=== PATIENT | female | born 1980 | race Native Hawaiian/Other Pacific Islander ===

== ENCOUNTER 2021-12-15 20:53 | Inpatient (IN) | payer OTHER ==
[2021-12-15 22:35] LABS: Bacteria,Urine 4+ /HPF (Negative); Color,Urine Colorless (Yellow); Mucus,Urine FEW /HPF; WBC,Urine < 1.0 /HPF (0.0-6.0)
[2021-12-16 04:40] LABS: Basophils # (Auto) 0.2 K/mm3 (0.0-0.1); Basophils % (Auto) 2.3 % (0.0-1.8); Eosinophils # (Auto) 0.1 K/mm3 (0.0-0.4); Eosinophils % (Auto) 0.8 % (0.0-4.3); Hematocrit 40.3 % (30.3-42.9); Hemoglobin 13.2 gm/dl (10.1-14.3); Lymphocytes % (Auto) 27.3 % (13.4-35.0); Mean Corpuscular HGB Conc 33 % (30-34); Mean Corpuscular Volume 91 fl (79-97); Monocytes # (Auto) 0.8 K/mm3 (0.0-0.8); Monocytes % (Auto) 10.6 % (0.0-7.3); Platelet Count 321 K/mm3 (140-440); Red Blood Count 4.44 M/mm3 (3.65-5.03); Red Cell Distribution Width 13.3 % (13.2-15.2)
[2021-12-16 05:00] LABS: Alanine Aminotransferase 24 units/L (7-56); Albumin 4.5 g/dL (3.9-5); Blood Urea Nitrogen 8 mg/dL (7-17); Calcium 9.1 mg/dL (8.4-10.2); Hemolysis Index 16
[2021-12-16 05:35] LABS: BUN/Creatinine Ratio 13
[2021-12-16] MEDS ORDERED: ONDANSETRON 4 MG/2 ML INJ IV ONE (07:13)
[2021-12-16] MEDS ORDERED: MORPHINE 4 MG/1 ML INJ IV ONE (07:13)
[2021-12-16] MEDS ORDERED: SODIUM CHLORIDE 0.9% 1000 ML 1,000 ML IV ONE (07:14)
--- NOTE | 2021-12-16 07:28 | Emergency Department Report ---
HPI - General Chief Complaint: Abdominal Pain PUI?: No Time Seen by Provider: 12/16/21 06:43 - HPI HPI: 41-year-old female presents for evaluation of 2 days of right flank pain and right lower quadrant pain. Patient states her symptoms initially began as right flank pain associate with nausea and intermittent diarrhea. She states is now localized to her right lower quadrant. Patient states she drank "a lot of fluids because I thought it could have been my kidneys." She complains of cloudy urine but without any other UTI symptoms. Pain is pressure-like constant and currently does not radiate. No fevers or chills. No prior history of similar symptoms in the past. No history of surgeries to her abdomen. No melena hematochezia or hematemesis. Last bowel movement was 1 day ago and she states it was watery. She has not taken any analgesics at home for her symptoms. She is not on any active antibiotics and has not recently been taking any. Pain currently 8 out of 10. ED Past Medical Hx - Past Medical History Previous Medical History?: No - Surgical History Past Surgical History?: No ED Review of Systems ROS: Stated complaint: RT ABD PAIN Other details as noted in HPI Comment: All other systems reviewed and negative Physical Exam - Physical Exam Vital Signs: Vital Signs 12/15/21 21:25 Temperature 99.0 F Pulse Rate 94 H Respiratory 17 Rate Blood Pressure 131/66 [Left] O2 Sat by Pulse 99 Oximetry General: Gen: pt is well appearing, no acute distress HEENT: Normocephalic atraumatic pupils equally round and reactive to light extraocular muscles intact sclera anicteric Neck: Full range of motion, no midline spinal tenderness palpation, no JVD, no carotid bruits, no nuchal rigidity CVS: S1-S2 regular rate and rhythm with no gallops rubs or murmurs, chest wall nontender Pulmonary: Clear to auscultation bilaterally, no wheezes rales or rhonchi Abdomen: Soft nondistended nontender no guarding or rebound tenderness, no palpable deformities or step-offs, normal active bowel sounds, no hepatosplenomegaly, no pulsatile masses : Deferred Extremities: No cyanosis no clubbing no edema, intact distal peripheral pulses, Integumentary: Skin normal, no petechia no purpura no abscess no lacerations no evidence of trauma no evidence of infection Neuro: Patient is awake alert and oriented to person place time situation, mentating well, cranial nerves II through XII intact, no focal neurodeficits, sensation grossly tact Psych: Calm cooperative, mood affect normal ED Course Vital Signs 12/15/21 21:25 Temperature 99.0 F Pulse Rate 94 H Respiratory 17 Rate Blood Pressure 131/66 [Left] O2 Sat by Pulse 99 Oximetry ED Medical Decision Making - Lab Data Result diagrams: 12/16/21 04:27 12/16/21 04:27 - Radiology Data Radiology results: report reviewed - Medical Decision Making 41yo F p/w RLQ pain x 2 days. VSS. labs reviewed. HCG neg. CT findings consistent with acute appendicitis. Patient offered for analgesics. Pt declined. Case discussed at length with on-call general surgeon, Dr. Rose. See patient's electronic health record for his documented impression and plan. Case reviewed verbally with admitting hospitalist, Dr. Pratt. He has verbalized agreement to accept the patient to the hospitalist service with comanagement by Dr. Rose. Critical care attestation.: If time is entered above; I have spent that time in minutes in the direct care of this critically ill patient, excluding procedure time. ED Disposition Clinical Impression: Abdominal pain, Acute appendicitis Disposition: HOME / SELF CARE / HOMELESS Is pt being admited?: Yes Does the pt Need Aspirin: No Condition: Stable Instructions: Abdominal Pain (ED) Referrals: PRIMARY CARE, [Primary Care Provider] - 3-5 Days
[2021-12-16 09:51] LABS: HCG Qualitative,Urine Negative (Negative)
--- NOTE | 2021-12-16 10:40 | Cat Scan Report ---
CT ABDOMEN AND PELVIS WITH IV CONTRAST INDICATION: RLQ pain x 2 days, R flank pain. COMPARISON: None available. TECHNIQUE: All CT scans at this facility use dose modulation, automated exposure control, iterative reconstructi on or weight based dosing, when appropriate, to reduce radiation dose to as low as reasonably achieva ble. FINDINGS: Lung Bases: No significant abnormality. Skeletal System: No acute abnormality. ABDOMEN: Liver: No significant abnormality. Gallbladder: No significant abnormality. Bile Ducts: No significant abnormality. Adrenals: No significant abnormality. Right Kidney: No significant abnormality. Left Kidney: No significant abnormality. Pancreas: No significant abnormality. Spleen: No significant abnormality. Upper GI tract: No significant abnormality. Lymph Nodes: No significant adenopathy. Aorta: No significant abnormality. Additional Findings: No significant abnormality. PELVIS: Colon: No acute abnormality. Urinary Bladder and Distal Ureters: No significant abnormality. Appendix: The appendix is diffusely thickened measuring 1 cm in diameter. The appendix is not dilated /fluid-filled. There is minimal periappendiceal inflammation. Lymph Nodes: No significant adenopathy. Additional Findings: None. IMPRESSION: 1. The appendix is diffusely thickened with mild periappendiceal inflammation concerning for mild ac [place] appendicitis in this patient with right lower quadrant pain. However, the appendix is not dilated /fluid-filled. Signer Name: Justin Robb MD Signed: 12/16/2021 10:36 AM Workstation Name: [id number]
[2021-12-16] MEDS ORDERED: cefTRIAXone/NS 1 GM/50 ML 1 GM/50 ML BAG IV ONE (10:46)
--- NOTE | 2021-12-16 11:56 | History and Physical Report ---
History of Present Illness Chief complaint: My stomach hurts History of present illness: 41 YO Female with Obesity presents to ED for evaluation. Patient reports "my stomach hurts". Patient dates she had experienced abdominal pain over the past 2 days. Patient states that pain is localized to the right side of the abdomen. Patient states that pain is 8/10, constant, nonradiating, without exacerbating or alleviating factors. Patient transported to [facility] via private vehicle for further care and evaluation of the aforementioned symptoms. The patient was seen and evaluated in the emergency department. All lab and imaging studies reviewed. Patient was CT scan of the abdomen and pelvis and was found to have evidence of acute appendicitis. Surgery team consulted in ED. Patient taken to the operating room for surgical intervention. Patient had fever, chills, chest pain, palpitation, productive cough, skin rash, recent contact, ingestion of food/water from new or different sources, rectal bleeding, or known exposure to COVID-19. No prior admission for review. No medication listed at time of admission for reconciliation. Advanced care planning conducted in ED. Past History Past Medical History: other (See HPI) Past Surgical History: No surgical history, Other (Reviewed) Social history: , lives with family. denies: smoking, alcohol abuse, prescription drug abuse Family history: hypertension Medications and Allergies Allergies Allergy/AdvReac Type Severity Reaction Status Date / Time No Known Allergies Allergy Unverified 12/16/21 08:28 Home Medications Medication Instructions Recorded Confirmed Last Taken Type No Known Home Medications [No 12/16/21 12/16/21 Unknown History Reported Home Medications] Review of Systems Constitutional: no weight loss, no weight gain, no fever, no chills Ears, nose, mouth and throat: no ear pain, no tinnitis, no decreased hearing Breasts: no change in shape, no mass Cardiovascular: no chest pain, no orthopnea, no palpitations, no edema, no syncope Respiratory: no cough, no cough with sputum, no shortness of breath Gastrointestinal: abdominal pain Genitourinary Female: no pelvic pain, no flank pain, no dysuria, no urinary frequency, no urgency Rectal: no pain, no incontinence Musculoskeletal: no neck stiffness, no neck pain, no shooting arm pain, no leg numbness/tingling Integumentary: no rash, no pruritis, no sores, no jaundice, no boils Neurological: no head injury, no transient paralysis, no weakness, no tingling, no syncope, no tremors Psychiatric: no anxiety, no memory loss, no sleep disturbances, no insomnia, no hypersomnia, no change in libido, no suicidal ideation Endocrine: no cold intolerance, no heat intolerance, no excessive thirst, no polydipsia, no polyuria, no nocturia, no flushing Hematologic/Lymphatic: no easy bruising, no easy bleeding, no lymphadenopathy Allergic/Immunologic: no urticaria, no allergic rhinitis, no wheezing, no persistent infections, no anaphylaxis Exam - Constitutional Vitals: Temp Pulse Resp BP Pulse Ox 99.0 F 94 H 17 131/66 99 12/15/21 21:25 12/15/21 21:25 12/15/21 21:25 12/15/21 21:25 12/15/21 21:25 General appearance: Present: mild distress, obese - EENT Eyes: Present: PERRL ENT: hearing intact, clear oral mucosa - Neck Neck: Present: supple, normal ROM - Respiratory Respiratory effort: normal Respiratory: bilateral: CTA - Cardiovascular Heart Sounds: Present: S1 & S2. Absent: rub, click - Extremities Extremities: pulses symmetrical, No edema Peripheral Pulses: within normal limits - Abdominal General gastrointestinal: Present: soft, tender, non-distended, normal bowel sounds Localized gastrointestinal: tender: RUQ Female genitourinary: Present: normal - Integumentary Integumentary: Present: clear, warm, dry - Musculoskeletal Musculoskeletal: gait normal, strength equal bilaterally - Psychiatric Psychiatric: appropriate mood/affect, intact judgment & insight - Neurologic Neurologic: CNII-XII intact, moves all extremities Results - Labs CBC & Chem 7: 12/16/21 04:27 12/16/21 04:27 Labs: Abnormal lab results 12/16/21 Range/Units 04:27 Keith % (Auto) 10.6 H (0.0-7.3) % Baso % (Auto) 2.3 H (0.0-1.8) % Baso # (Auto) 0.2 H (0.0-0.1) K/mm3 Assessment and Plan - Patient Problems (1) Acute appendicitis Current Visit: Yes Status: Acute Plan to address problem: CT scan abdomen and pelvis, bowel rest, IV fluid resuscitation therapy, surgery team consulted, surgical intervention as per surgical team, pain control. (2) Obesity (BMI 30.0-34.9) Current Visit: Yes Status: Acute Plan to address problem: Balanced diet, increase physical activity discharge, balanced diet weight reduction (3) Abdominal pain Current Visit: Yes Status: Acute Qualifiers: Abdominal location: right lower quadrant Qualified Code(s): R10.31 - Right lower quadrant pain Plan to address problem: Serial abdominal exam, CT scan abdomen pelvis, supportive care. Pain control. Bowel rest. IV fluid resuscitation therapy (4) DVT prophylaxis Current Visit: Yes Status: Acute Plan to address problem: SCD to bilateral lower extremities while in bed (5) Advance care planning Current Visit: Yes Status: Acute Plan to address problem: Disease education data, care plan discussed, diagnoses discussed, prognosis discussed patient acknowledges understanding and agreement with care plan, +30 minutes. (6) Preventative health care Current Visit: Yes Status: Acute Plan to address problem: Patient and family counseled regarding balanced diet, weight reduction, meal planning, outpatient follow-up with primary care physician for all age and risk factor appropriate screening test. Outpatient gynecology follow-up for all age and risk factor appropriate screening test. +30 minutes.
[2021-12-16] MEDS ORDERED: ACETAMINOPHEN 325 MG TAB PO PRN (11:57)
[2021-12-16] MEDS ORDERED: ONDANSETRON 4 MG/2 ML INJ IV PRN ×2 (11:57→16:30)
[2021-12-16] MEDS ORDERED: ALBUTEROL 2.5 MG/3 ML NEBU IH PRN (11:57)
[2021-12-16] MEDS ORDERED: oxyCODONE /ACETAMINOPHEN 5-325MG TAB PO PRN (11:57)
[2021-12-16] MEDS ORDERED: MORPHINE 4 MG/1 ML INJ IV PRN (11:57)
--- NOTE | 2021-12-16 13:32 | Anesthesia Consultation ---
Anesthesia Consult and Med Hx Date of service: 12/16/21 - Airway Anesthetic Teeth Evaluation: Good ROM Head & Neck: Adequate Mental/Hyoid Distance: Adequate Mallampati Class: Class I Intubation Access Assessment: Probably Good - Pulmonary Exam CTA: Yes - Cardiac Exam Cardiac Exam: RRR - Pre-Operative Health Status ASA Pre-Surgery Classification: ASA1 Proposed Anesthetic Plan: General - Pulmonary Hx Smoking: No Hx Respiratory Symptoms: No - Cardiovascular System Hx Hypertension: No Hx Heart Attack/AMI: No - Central Nervous System Hx Neuromuscular Disorder: No Hx Psychiatric Problems: No - Endocrine Hx Renal Disease: No Hx Liver Disease: No - Hematic Hx Anemia: No - Other Systems Hx Alcohol Use: No Hx Obesity: No - Additional Comments Anesthesia Medical History Comments: no GAC. no FHAC.
--- NOTE | 2021-12-16 13:33 | Anesthesia Day of Surgery ---
Anesthesia Day of Surgery - Day of Surgery Patient Examined: Yes Patient H&P Reviewed: Yes Patient is NPO: Yes ([id number])
[2021-12-16] MEDS ORDERED: BUPIVACAINE/PF (0.5%) 5 MG/1 ML 30 ML VIAL INFILTRATI ONE (14:11)
[2021-12-16] MEDS ORDERED: BUPIVACAINE-EPINEPHRINE/PF 0.5%-1:200,000 (30 ML) VIAL INFILTRATI ONE ×2 (14:12→15:29)
[2021-12-16] MEDS ORDERED: ROCURONIUM 50 MG/5 ML INJ IV ONE (14:27)
[2021-12-16] MEDS ORDERED: LIDOCAINE MPF (2%) 20 MG/1 ML VIAL 5 ML ONE (14:27)
[2021-12-16] MEDS ORDERED: SUCCINYLCHOLINE CHLORIDE 200 MG/10 ML INJ MDV ONE (14:27)
[2021-12-16] MEDS ORDERED: HYDROmorphone 1 MG/1 ML INJ ONE (14:28)
[2021-12-16] MEDS ORDERED: propofoL 200 MG/20 ML VIAL IV ONE (14:28)
[2021-12-16] MEDS ORDERED: LIDOCAINE (2%) 20 MG/1 ML VIAL 50 ML MDV INFILTRATI ONE (15:29)
[2021-12-16] MEDS ORDERED: SODIUM CHLORIDE 0.9% IRR 1,500 ML BOTTLE IR ONE (15:30)
[2021-12-16] MEDS ORDERED: GLYCOPYRROLATE 0.4 MG/2 ML INJ ONE (15:34)
[2021-12-16] MEDS ORDERED: PHENYLEPHRINE/NS 1,000 MCG/10 ML SYRINGE (OR USE) IV ONE (15:50)
[2021-12-16] MEDS ORDERED: dexAMETHasone 20 MG/5 ML VIAL ONE (15:50)
[2021-12-16] MEDS ORDERED: ONDANSETRON 4 MG/2 ML INJ ONE (15:50)
[2021-12-16] MEDS ORDERED: NEOSTIGMINE 10MG/10 ML INJ MDV ONE (15:50)
--- NOTE | 2021-12-16 16:00 | Operative Report ---
Operative Report Operative Report: Procedure date: 12/16/2021 Preop diagnosis: Acute appendicitis Postop diagnosis: Same Procedure: Laparoscopic appendectomy Surgeon: Dr. Rose Corn Husker: Anesthesia: General endotracheal Estimated blood loss: 5 cc Specimen: Appendix Findings: This patient presents with a acute appendicitis diagnosed on CAT scan. She is taken to the OR and under general endotracheal anesthesia timeouts and consents are obtained. An De Leon catheter is placed. Abdomen is prepped with ChloraPrep and 3 minutes later draped in a sterile fashion. A 5 mm incision is made in the left upper quadrant and Veress needle was used to gain access peritoneal cavity. Abdomen is insufflated with CO2. 5 Weinstein port is placed in the left upper quadrant and in the low midline. A 12 mm port is placed supraumbilically. The appendix is identified in the right hypogastruim and grasped with graspers. The endoscopic LIBBY stapler is used to separate the appendix from the base of the cecum. Harmonic scalpel was used to divide the mesoappendix. Bleeding is controlled with the harmonic scalpel. Specimen is then placed in a specimen bag and extracted through the 10 mm port. The fascial defect is then closed with a Enoch Gamble system and a 2-0 Vicryl stitch. Skin is then closed with 4-0 Monocryl and Dermabond.
[2021-12-16] MEDS ORDERED: HYDROmorphone 0.5 MG/0.5 ML INJ ONE (16:07)
[2021-12-16] MEDS ORDERED: LACTATED RINGERS 1,000 ML ONE (16:13)
--- NOTE | 2021-12-16 16:25 | Post Anesthesia Evaluation ---
- Post Anesthesia Evaluation Patient Participated: Yes Airway Patent: Yes Stable Respiratory Function: Yes Nausea/Vomiting: No Temp > 96.8F: Yes Pain Manageable: Yes Adequeate Hydration: Yes Anesthesia Complications: No Block Receding Appropriately: Not Applicable Patient on Ventilator: No
[2021-12-16] MEDS ORDERED: HYDROmorphone 0.5 MG/0.5 ML INJ IV PRN ×2 (16:30)
[2021-12-17 05:28] LABS: Basophils % (Auto) 0.1 % (0.0-1.8); Hematocrit 37.9 % (30.3-42.9); Hemoglobin 12.7 gm/dl (10.1-14.3); Lymphocytes # (Auto) 1.1 K/mm3 (1.2-5.4); Lymphocytes % (Auto) 13.1 % (13.4-35.0); Mean Corpuscular HGB Conc 34 % (30-34); Mean Corpuscular Volume 89 fl (79-97); Monocytes # (Auto) 0.5 K/mm3 (0.0-0.8); Monocytes % (Auto) 6.1 % (0.0-7.3); Platelet Count 318 K/mm3 (140-440); Red Blood Count 4.24 M/mm3 (3.65-5.03)
[2021-12-17 05:31] LABS: Blood Urea Nitrogen 6 mg/dL (7-17); Calcium 9.1 mg/dL (8.4-10.2); Hemolysis Index 37
[2021-12-17 05:49] LABS: BUN/Creatinine Ratio 12
--- NOTE | 2021-12-17 16:14 | Discharge Summary ---
Providers - Providers Date of Admission: 12/16/21 11:57 Date of discharge: 12/17/21 Attending physician: LIZ HORTON MD 12/16/21 11:29 Consult to Physician [CONS] Stat Comment: Consulting Provider: ОЛЬГА MARIN Physician Instructions: Reason For Exam: RLQ pain, acute appendicitis on ct Primary care physician: BLE[employer] SUPER[employer]OR Hospitalization Reason for admission: Acute appendicitis Condition: Stable Pertinent studies: Reviewed. Procedures: Laparoscopic appendectomy Hospital course: Patient is a 41 YO Female with Obesity presents to ED for evaluation. Patient reports "my stomach hurts". Patient dates she had experienced abdominal pain over the past 2 days. Patient states that pain is localized to the right side of the abdomen. Patient states that pain is 8/10, constant, nonradiating, without exacerbating or alleviating factors. Patient transported to [facility] via private vehicle for further care and evaluation of the aforementioned symptoms. The patient was seen and evaluated in the emergency department. All lab and imaging studies reviewed. Patient was CT scan of the abdomen and pelvis and was found to have evidence of acute appendicitis. Surgery team consulted in ED. Patient taken to the operating room for surgical intervention. Patient underwent laparoscopic appendectomy with general surgery on 12/16/2021. Patient tolerated the procedure well. Patient will follow up with general surgery in outpatient setting in approximately 1 week. Patient is medically clear for discharge. Disposition: 01 HOME / SELF CARE / HOMELESS Final Discharge Diagnosis (Prints w/discharge instructions): Acute appendicitis status post laparoscopic cholecystectomy, obesity Time spent for discharge: 45 min Core Measure Documentation - Palliative Care Palliative Care/ Comfort Measures: Not Applicable - Core Measures Any of the following diagnoses?: none Exam - Constitutional Vitals: Temp Pulse Resp BP Pulse Ox 98.6 F 80 18 115/65 94 12/17/21 11:40 12/17/21 11:40 12/17/21 11:40 12/17/21 11:40 12/17/21 15:30 General appearance: Present: no acute distress, well-nourished, obese - EENT Eyes: Present: PERRL, EOM intact ENT: hearing intact, clear oral mucosa, dentition normal - Neck Neck: Present: supple, normal ROM - Respiratory Respiratory effort: normal Respiratory: bilateral: CTA - Cardiovascular Rhythm: regular Heart Sounds: Present: S1 & S2 - Extremities Extremities: no ischemia, pulses intact, pulses symmetrical, No edema, normal temperature, normal color, Full ROM Peripheral Pulses: within normal limits - Abdominal General gastrointestinal: Present: soft, tender, non-distended, normal bowel sounds, other (Appropriate tenderness at incision sites) Female genitourinary: Present: deferred - Rectal Rectal Exam: deferred - Integumentary Integumentary: Present: clear, warm, dry - Musculoskeletal Musculoskeletal: strength equal bilaterally - Psychiatric Psychiatric: appropriate mood/affect, intact judgment & insight, memory intact, cooperative - Neurologic Neurologic: CNII-XII intact, moves all extremities - Allied Health Allied health notes reviewed: nursing Plan Activity: advance as tolerated Diet: regular Additional Instructions: Patient is a 41 YO Female with Obesity presents to ED for evaluation. Patient reports "my stomach hurts". Patient dates she had experienced abdominal pain over the past 2 days. Patient states that pain is localized to the right side of the abdomen. Patient states that pain is 8/10, constant, nonradiating, without exacerbating or alleviating factors. Patient transported to [facility] via private vehicle for further care and evaluation of the aforementioned symptoms. The patient was seen and evaluated in the emergency department. All lab and imaging studies reviewed. Patient was CT scan of the abdomen and pelvis and was found to have evidence of acute appendicitis. Surgery team consulted in ED. Patient taken to the operating room for surgical intervention. Patient underwent laparoscopic appendectomy with general surgery on 12/16/2021. Patient tolerated the procedure well. Patient will follow up with general surgery in outpatient setting in approximately 1 week. Patient is medically clear for discharge. Care Plan Goals: Patient is medically clear for discharge. Assessment: Patient is a 41 YO Female with Obesity presents to ED for evaluation. Patient reports "my stomach hurts". Patient dates she had experienced abdominal pain over the past 2 days. Patient states that pain is localized to the right side of the abdomen. Patient states that pain is 8/10, constant, nonradiating, without exacerbating or alleviating factors. Patient transported to [facility] via private vehicle for further care and evaluation of the aforementioned symptoms. The patient was seen and evaluated in the emergency department. All lab and imaging studies reviewed. Patient was CT scan of the abdomen and pelvis and was found to have evidence of acute appendicitis. Surgery team consulted in ED. Patient taken to the operating room for surgical intervention. Patient underwent laparoscopic appendectomy with general surgery on 12/16/2021. Patient tolerated the procedure well. Patient will follow up with general surgery in outpatient setting in approximately 1 week. Patient is medically clear for discharge. Follow up with: PRIMARY CAREMD [Primary Care Provider] - 3-5 Days ОЛЬГА MARIN MD [Staff Physician] - 7 Days Forms: Work/School Release Form
[2021-12-17 17:04] VITALS: BP 97/53
== END 2021-12-17 17:45 | disposition home or self-care (01) | DRG 343 ==
LOC: ED 20:53 → 3A 12-16 11:57
PROVIDERS: ADMIT Internal Medicine; ATTEND Student in an Organized Health Care Education/Training Program
PROC: 0DTJ4ZZ Resection of Appendix, Percutaneous Endoscopic Approach (ICD-10-PCS; principal; 2021-12-16)
DX: K35.80 Unspecified acute appendicitis (principal); E66.9 Obesity, unspecified; Z68.31 Body mass index [BMI] 31.0-31.9, adult; Z82.49 Family history of ischemic heart disease and other diseases of the circulatory system
CPT/HCPCS: 36415; 74177; 80048; 80053; 81001; 81025; 83690; 85025; 88304; 96365; 96366; 96375; 99285; G0378; J1815; J3490; J0330; J0696; J1100; J1170; J2270; J2370; J2405; J2704; J2710; J7120; Q9967